=== PATIENT | male | born 1950 | race Caucasian/White ===

== ENCOUNTER → 2018-09-05 06:09 | Day surgery (SDC) | payer MEDICARE, BC ==
--- NOTE | 2018-08-22 17:18 | HP ---
AMENDED REPORT NOW INCLUDES DESIGNATED COSIGNER CC: Dr. Akbar Velasquez; Dr. Jamal Escobar. * PREOPERATIVE HISTORY AND PHYSICAL: DATE OF ADMISSION/SURGERY: 09/05/18 This patient is scheduled for same-day surgery admission by Dr. Kellogg on 09/05/18. DATE OF PREOPERATIVE HISTORY AND PHYSICAL EXAMINATION: 08/22/18. ATTENDING SURGEON: Dr. Jayme Kellogg * (dictated by Jennifer Vicente NP). CHIEF COMPLAINT: Gallbladder disease. HISTORY OF PRESENT ILLNESS: The patient is a 67-year-old male who [facility] to [facility] 05[facility]18 after a recent admission in the [facility] for epigastric pain. The patient presented with the acute onset of epigastric pain associated with nausea and vomiting. The patient denied any fevers at that time. He was worked up in the emergency room , which included a CAT scan and ultrasound. The ultrasound was consistent with gallstones and mild gallbladder wall thickening; the CAT scan showed some gallbladder stones without other etiology for the patient's abdominal pain. Those reports and scan images were reviewed by Dr. Kellogg. White blood cell count at that time was 10.9; creatinine 1.4 and liver enzymes were elevated. The patient was started on antibiotics and was discharged home on antibiotics. When he saw Dr. Kellogg here in the office, 05/31/18, he was feeling well and had no further episodes. Additionally, the patient underwent a HIDA scan, which was within normal limits, no obstruction of the cystic or common bile ducts. Dr. Kellogg examined the patient and reviewed the findings with him and has recommended laparoscopic cholecystectomy as a same-day surgery procedure. He discussed the nature of gallbladder disease, the nature of the surgical procedure, the rationale for the procedure, the relevant risks and benefits and today, I reviewed the expected postoperative care and recovery. The patient has had a chance to ask questions and stated that he understands the information and is satisfied with the answers given to his questions. He will sign surgical consent on the day of surgery. The patient was cleared by Dr. Escobar from Cardiology to proceed with the surgery. Please see the attached cardiac consultation note from 07/20/18. I also spoke with Dr. Akbar Velasquez, who is the patient's primary care provider; the patient is on anticoagulation with warfarin for history of factor V Leiden mutation with history of deep vein thrombosis and pulmonary embolism and therefore he will be bridged to Lovenox in the perioperative period. 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 PAST SURGICAL HISTORY: Implantation of automatic defibrillator; arthroscopy of the left knee. MEDICATIONS: 1. Cardizem CD 120 mg p.o. daily in the morning. 2. Norvasc 10 mg p.o. daily in the morning. 3. Bupropion 75 mg 2 tablets b.i.d. 4. Atorvastatin 40 mg 1-1/2 tablets daily in the evening. 5. Ramipril 5 mg p.o. daily in the evening. 6. Metoprolol 50 mg 1-1/2 tablets b.i.d. 7. Warfarin 5 mg daily. The patient will take his last dose of warfarin in preparation for surgery and he will be bridged to Lovenox. 8. Potassium chloride 20 mEq p.o. daily in the morning. 9. Aspirin 81 mg p.o. daily in the morning and he will continue this in the perioperative period. 10. Dexilant 60 mg p.o. daily in the morning. 11. Beconase 25 g nasal spray p.r.n. 12. Cialis 5 mg p.r.n. 13. Proventil inhaler 2 puffs four times daily p.r.n. 14. Zolpidem extended release 12.5 mg p.o. at bedtime as needed. 15. Avodart 0.5 mg p.o. daily in the morning. ALLERGIES: BETA-ADRENERGIC BLOCKERS such as METOPROLOL in large doses cause dizziness and syncope. The patient states that he can tolerate 1-1/2 tablets as he is currently taking, but if it is increased to 2, he becomes lightheaded. FAMILY HISTORY: No known clotting disorders, bleeding tendencies, or anesthesia complications. SOCIAL HISTORY: He lives with his female partner; he is a former smoker, who quit in the late ; he occasionally consumes wine and denies the use of other substances. He is retired and exercises routinely walking 5 to 6 days per week. REVIEW OF SYSTEMS: Constitutional: No fevers, chills, excessive fatigue, or weight loss. Endocrine: No diabetes or thyroid disease. Hematologic: No easy bruising or bleeding while on warfarin. No history of blood transfusions. Respiratory: No dyspnea on exertion. No chronic cough. Cardiovascular: He is followed by Dr. Escobar. He denies chest pain or syncopal episodes. He remains active with walking. He has a history of coronary artery disease and old myocardial infarction anterolateral. He underwent echocardiogram, June 2018, which revealed mildly reduced LV function with EF of 40% to 45%, small area of apical dyskinesis, mildly dilated ascending aorta. He completed a cardiac chemical nuclear stress test, 07/16/18, which was abnormal, but no evidence of ischemia, evidence of large anterior apical infarction with moderately reduced LV function. He also completed a 38-day event monitor in 2015 , which was benign. EKG, 07/20/18, sinus bradycardia with a rate of 59 and old anterolateral infarct. Interrogation of ICD, 04/20/18, revealed normal function. Dr. Escobar cleared the patient to go forward with the laparoscopic cholecystectomy and stated that he felt that the patient was optimized from a cardiac standpoint. The patient is to receive his cardiac medications including the beta-darling in the perioperative period; he will bridged from warfarin to Lovenox, which I have discussed with his primary care provider, Dr. Velasquez. Dr. Escobar stated if cautery is needed, a magnet can be placed over the generator site, but that the patient will require continuous external cardiac monitoring and defibrillation capability while the magnet is in place. Postprocedure, the magnet can be removed and ICD interrogation is not required postop. Currently, the patient denies any anginal chest pain or palpitations or dizziness or syncopal episodes. Gastrointestinal: As described in history of present illness. Today, he denies nausea, vomiting, diarrhea, change in the color of stool, or constipation. Genitourinary: No dysuria. No change in the color of urine. Musculoskeletal: No complaints of back or joint pain. Integumentary: No chronic rashes or skin changes. Neurologic: No headache or blurred vision. No lightheadedness. No areas of focal weakness or numbness. General: No previous anesthesia complications. PHYSICAL EXAMINATION GENERAL SURVEY: The patient is a 67-year-old male, well developed, well nourished, in no acute distress. VITAL SIGNS: Height 69 inches, weight 212 pounds, body mass index 31. Blood pressure 98/70, pulse 66 and regular, respiratory rate 16, temperature 97.8 tympanic. HEENT: Benign. NECK: Supple. No carotid bruits. No cervical lymphadenopathy. Neck veins are nondistended. LUNGS: Breath sounds bilaterally clear and equal. HEART: Regular rate and rhythm. No obvious murmurs or rubs. ABDOMEN: Active bowel sounds. Soft, nondistended, and nontender throughout. No surgical incisions. No obvious masses or ventral hernias. No obvious organomegaly. BACK: No CVA tenderness. GENITALIA: Exam deferred. RECTAL: Exam deferred. EXTREMITIES: He is wearing compression stockings. No obvious edema or skin ulcerations. NEUROLOGIC: Alert and oriented x3. Steady gait. SKIN: Warm, dry, intact. IMPRESSION: Symptomatic cholelithiasis. PLAN: Same-day surgery admission to Dr. Kellogg's service for laparoscopic cholecystectomy on 09/05/18. The patient has been cleared by Dr. Escobar from Cardiology to proceed with surgery; the patient will be bridged from warfarin to Lovenox in the perioperative period. His primary care provider, Dr. Velasquez, was consulted on the Lovenox dosing. RAH VICENTE NP [id number]/[facility] #: [id number] TIMI
[~2018-09-05 06:09] MED LIST: Acetaminophen IV 1GM/100ML * 1,000 MG/100 ML VIAL IVPB ONE; Acetaminophen IV 1GM/100ML * 100 ML ONE; Atracurium* 10 MG/ML 10 ML VIAL ONE; Buffered Lidocaine 0.9% SYRIN* 5 ML/SYR SYRINGE INTRADERM ONE; Bupivacaine 0.25% W/EPI* 10 ML SDV ONE; Dexamethasone IV* 4 MG/ML 1 ML (4 MG) ONE; DiMENhydriNATE IV* 50 MG/ML VIAL IV PUSH PRN; HYDROmorphone INJ1* 1 MG/ML SYRINGE IV PRN; Heparin VIAL(*) 5000 UNITS/ML VIAL (FIVE THOUSAND) ONE; Midazolam* 1 MG/ML 2 ML VIAL (2 MG) ONE; Naloxone* 0.4 MG/ML 1 ML VIAL IV PRN; Ondansetron INJ* 2 MG/ML VIAL IV PRN; Ondansetron INJ* 2 MG/ML VIAL ONE; Propofol* 10 MG/ML 20 ML BTL IV PUSH ONE; Succinylcholine* 20 MG/ML 10 ML VIAL ONE; ceFAZolin 2 GM PREMIX in ORs 2 GM/50 ML BAG IVPB ONE; fentaNYL* 50 MCG/ML 2 ML VIAL (100 MCG VIAL) ONE; oxyCODONE TAB* 5 MG TAB PO PRN
[2018-09-05 06:51] LABS: INR 0.94 (0.77-1.02)
[2018-09-05] MEDS: fentaNYL* 50 MCG/ML 2 ML VIAL (100 MCG VIAL) IV PRN ×3 (09:20→09:36)
[2018-09-05 10:37] VITALS: BP 100/62
--- NOTE | 2018-09-05 16:31 | OP ---
CC: Dr. Akbar Velasquez * DATE OF OPERATION: 09/05/18 - [facility] DATE OF : 48 SURGEON: Jayme Kellogg MD BLACKENER: Jennifer Antoine NP ANESTHESIOLOGIST: Dr. Armstrong. ANESTHESIA: General anesthesia. PRE-OP DIAGNOSIS: Chronic cholecystitis. POST-OP DIAGNOSIS: Chronic cholecystitis. OPERATIVE PROCEDURE: Laparoscopic cholecystectomy. ESTIMATED BLOOD LOSS: Less than 50 cc. IV FLUIDS: Crystalloid fluid given. SPECIMENS: Gallbladder. DRAINS: None. DESCRIPTION OF PROCEDURE: The patient was identified in the preoperative area, marked, consented and brought to the operating room, placed in the operating room table in a supine position. Preoperative antibiotics were given. Sequential devices were placed on bilateral lower extremities and general anesthesia was induced. The patient's abdomen was clipped of hair and prepped and draped in the standard surgical fashion and a time-out was performed. Folds of the umbilicus were elevated anteriorly and a Veress needle was inserted into the abdomen, which was then allowed to insufflate to a pressure of 15 mmHg. The patient tolerated the insufflation well. A periumbilical incision was made and a 5 mm trocar was inserted blindly. Laparoscope was inserted to this. There was no evidence of injury from the trocar insertion or from the Veress needle, which was then removed. Attention was turned to his right upper quadrant. Omentum was draped over the liver. A 12 mm trocar was then inserted through a subxiphoid incision and the omentum was removed and placed inferiorly exposing the gallbladder, which did not show any acute signs of infection. Additional trocars were placed were then placed in the following positions: Two 5 mm along the right costal margin. Table was repositioned in a standard fashion. The fundus of the gallbladder was grasped and elevated above the liver. Infundibular region was retracted towards right lower quadrant. We did see common bile duct with the tissues and we then utilized sharp dissection as well as electrocautery to free up the attachments of the infundibular region of the gall-bladder extended up to the lateral aspect of the gallbladder, taking the peritoneum away. This peritoneal structures were thickened and somewhat difficult to go through. We went up the medial aspect, isolated the artery. This was doubly clipped and ligated. We got the behind the gallbladder and took a dissection from the mid portion of the gallbladder and down slowly taking away some of the chronic inflammatory tissue around the infundibular region down to what appeared to be the cystic duct. Again, common bile duct was visualized. We did see critical view of having only one structure entering the gallbladder with the exception of the artery, which had been clipped and we then triply clipped the cystic duct and removed the gallbladder from the liver bed, placed in an endoscopic retrieval bag. Gallbladder had been punctured high up at one point draining some bile, but not draining any stones. Additionally in the dissection of the cystic duct , there was a small pinhole, but the clips were proximal to this pinhole and this was not going to be a factor. We then irrigated the gallbladder fossa and suctioned out this fluid until the effluent was clear. There was no evidence of bleeding. No bile leakage after we cleaned up. Reviewed the cystic duct stumps, cystic artery stump again and these were within normal limits. Next, the table was repositioned back to neutral. The gallbladder contents were removed through the xiphoid incisions inside of the endoscopic retrieval bag. The abdomen was allowed to collapse and trocars were removed under direct vision and all skin incisions were reapproximated with 4-0 Monocryl in subcuticular sutures followed by Steri-Strips and sterile dressings. The patient tolerated the procedure well and was transferred to the PACU in stable condition. [id number]/[facility] #: [id number] TIMI
== END | disposition home or self-care (01) ==
LOC: OR 06:09
PROVIDERS: ATTEND Surgery
DX: K80.10 Calculus of gallbladder with chronic cholecystitis without obstruction (principal); Z79.01 Long term (current) use of anticoagulants; D68.51 Activated protein C resistance; I25.10 Atherosclerotic heart disease of native coronary artery without angina pectoris; I25.2 Old myocardial infarction; I25.5 Ischemic cardiomyopathy; Z86.718 Personal history of other venous thrombosis and embolism; Z86.711 Personal history of pulmonary embolism
CPT/HCPCS: 36415; 85610; 88304; J0330; J0690; J1100; J1644; J2250; J2405; J2704; J3010